=== PATIENT | male | born 1975 | race Caucasian/White ===

== ENCOUNTER 2024-03-25 13:33 | Emergency (ER) | payer OTHER, SELFPAY ==
--- NOTE | ~2024-03-25 | XR_ITS ---
XR chest 1V portable Ordering provider: Sim Palacio DO History: 49 years Male with . chest tightness, restricted airway X week, now worse, asthma . Comparison: None. FINDINGS: MEDIASTINUM: The cardiac silhouette is not enlarged. LUNGS: No infiltrates, effusions or pneumothorax. OTHER: No free air under the diaphragm. IMPRESSION: No acute cardiopulmonary pathology. Reviewed, dictated and finalized at location A. ECONOMIST
--- NOTE | 2024-03-25 13:43 | PC.NURSE ---
Covid culture sent to lab
--- NOTE | 2024-03-25 13:55 | ECG_ITS ---
Test Date: 2024-03-25 14:37:08 Measurements Intervals [place] Rate: 92 P: 55 OK: 153 QRS: -61 QRSD: 108 T: 63 QT: 345 QTc: 427 Interpretive Statements SINUS RHYTHM PATTERN CONSISTENT WITH PULMONARY DISEASE LEFT ANTERIOR FASCICULAR BLOCK [QRS AXIS <= -45, QR IN I, RS IN II] No previous ECG available for comparison Electronically Signed On 03-26-2024 15:06:43 [employer] KEEPER by Angie Goins M.D.
--- NOTE | 2024-03-25 13:57 | ED_ITS ---
HPI - General Adult General Chief complaint: Upper Respiratory Infection Stated complaint: SOB Time Seen by Provider: 03/25/24 13:36 History of Present Illness HPI narrative: Ronnie is a 49M with a PMH of asthma a that presented to the ED with some chest pain and dyspnea. He had URI symptoms for 10 days that were resolving but a few days ago he started having some chest discomfort, dyspnea, cough and lightheaded. The chest pain is better with activity and cold air. No nausea/vomiting. He has taken his Airsupra at home with some modest effect. Related Data Allergies Allergy/AdvReac Type Severity Reaction Status Date / Time amoxicillin (From Amoxil) Allergy Severe Rash Verified 03/25/24 14:20 Review of Systems 2 Review of Systems: All systems reviewed & are unremarkable except as noted in HPI and below Exam 2 Const: General: cooperative, healthy appearing, comfortable, no acute distress, well developed, alert, awake and Physically active O rientation/consciousness: oriented to person, oriented to place and oriented to time HENMT: Head: normal to inspection, normocephalic and atraumatic Ears: h earing grossly normal bilaterally and external ears normal Face/Nose/Sinus: N ormal external nose present Eyes: General: appearance normal, both eyes and all related structures P eriorbital: periorbital findings normal Sclera: sclerae normal Pupils: E qual, round and reactive pupils present Neck: Neck: normal visual inspection Chest: Chest palpation & inspection: normal inspection of the chest Resp: Effort & Inspection: normal respiratory effort, able to speak in complete sentences and no respiratory distress Other: scant wheezing in all lung dickinson Cardio: Jugular venous distension: no JVD Rate: regular rate Rhythm: r egular rhythm GI: Inspection: normal to inspection GI Palp: Yes Soft to palpation A uscultation: normal bowel sounds Skin: General skin exam: normal color and no rashes or lesions noted Neuro: General: oriented to person, oriented to place and oriented to time Cranial nerves: Yes Equal, round and reactive pupils present Extrem: General: normal to inspection Course Course Emergency Course: Ordered CXR, labs, EKG, steroids and duoneb. XR chest 1V portable Ordering provider: Sim Palacio DO History: 49 years Male with . chest tightness, restricted airway X week, now worse, asthma . Comparison: None. FINDINGS: MEDIASTINUM: The cardiac silhouette is not enlarged. LUNGS: No infiltrates, effusions or pneumothorax. OTHER: No free air under the diaphragm. IMPRESSION: No acute cardiopulmonary pathology. EKG showed sinus tachycardia with a rate of 92, normal axis, and no ST elevation/depression COVID+, CBC and chemistries largely unremarkable Vital Signs Vital signs: Vital Signs Oxygen Delivery Room Air 03/25/24 14:00 Temperature 98.3 F 03/25/24 15:06 Pulse Rate 97 03/25/24 15:06 Respiratory Rate 18 03/25/24 15:06 Blood Pressure 122/84 03/25/24 15:06 Pulse Oximetry 95 03/25/24 15:06 Oxygen Delivery Room Air 03/25/24 15:06 Medical Decision Making Vital Signs Vital Signs: Vital Signs Oxygen Delivery Room Air 03/25/24 14:00 Temperature 98.3 F 03/25/24 15:06 Pulse Rate 97 03/25/24 15:06 Respiratory Rate 18 03/25/24 15:06 Blood Pressure 122/84 03/25/24 15:06 Pulse Oximetry 95 03/25/24 15:06 Oxygen Delivery Room Air 03/25/24 15:06 Lab Data 03/25/24 14:04 03/25/24 14:04 Labs: Lab Results 03/25/24 03/25/24 Range/Units 13:56 14:04 WBC 8.3 (4.8-10.8) K/mm3 RBC 4.86 (4.70-6.10) M/mm3 Hgb 14.3 (14.0-18.0) g/dL Hct 42.5 (40.0-54.0) % MCV 87.4 (78.0-102.0) fL MCH 29.4 (27.0-31.0) pg MCHC 33.6 (32-36) g/dL RDW 11.8 (11.6-14.4) % Plt Count 341 (150-420) K/mm3 MPV 8.9 (8.7-11.0) fl Immature Gran % (Auto) 0.5 H (0.0-0.0) % Neut % (Auto) 73.2 H (50.0-70.0) % Lymph % (Auto) 10.8 L (18.0-42.0) % [place] % (Auto) 13.5 H (2.0-11.0) % Eos % (Auto) 1.4 (1.0-6.0) % Baso % (Auto) 0.6 (0.0-1.0) % Lymph # (Auto) 0.90 L (1.10-4.50) K/mm3 [place] # (Auto) 1.12 H (0.10-0.90) K/mm3 Eos # (Auto) 0.12 (0.02-0.50) K/mm3 Baso # (Auto) 0.05 (0.00-0.10) K/mm3 Abs Immat Gran (auto) 0.04 H (0.00-0.00) K/mm3 Absolute Neuts (auto) 6.07 (1.70-7.20) K/mm3 Absolute Nucleated RBC 0.00 (0.00-0.00) K/mm3 Nucleated RBC % 0.0 (0-0.0) % Sodium 141 (136-145) mmol/L Potassium 4.2 (3.5-5.1) mmol/L Chloride 100 (98-108) mmol/L Carbon Dioxide 30 (21-32) mmol/L Anion Gap 11 (4-12) mmol/L BUN 13 (7-18) mg/dL Creatinine 1.01 (0.70-1.30) mg/dL Estim Creat Clear Calc Not Reportable Estimated GFR > 60 (59 - ) Glucose 83 (70-99) mg/dL Calculated Osmolality 291 (285-295) mOsm/kg Calcium 9.4 (8.5-10.1) mg/dL Total Bilirubin 0.4 (0.00-1.00) mg/dL AST 17 (15-37) U/L ALT 59 (16-63) U/L Alkaline Phosphatase 114 (46-116) U/L Troponin I < 4.0 (0.00-60.4) ng/L NT-Pro-B Natriuret Pep 106 (0-125) pg/mL Total Protein 7.7 (6.4-8.2) g/dL Albumin 3.7 (3.4-5.0) g/dL Influenza A (RT-PCR) Negative (Negative) Influenza B (RT-PCR) Negative (Negative) RSV (RT-PCR) Negative (Negative) SARS-CoV-2 RNA (RT-PCR) Positive A (Negative) Discharge Plan Discharge Clinical Impression: COVID-19, Asthma exacerbation Patient Disposition: Home, Self-Care Condition: Stable Instructions: Bronchospasm (ED) Patient Language: Moroccan Prescriptions: New prednisone 50 mg tablet 50 mg PO DAILY Qty: 5 0RF Paxlovid 300 mg (150 mg x 2)-100 mg tablets,dose pack See Rx Instructions .ROUTE .COMPLEX Qty: 30 0RF Rx Instructions: take TWO 150 mg tablets of nirmatrelvir with ONE 100 mg tablet of ritonavir twice daily for 5 days Follow-up/Referrals: UNKNOWN,DOCTOR [Primary Care Provider] -
[2024-03-25 14:09] LABS: Basophils Absolute Auto 0.05 K/mm3 (0.00-0.10); Basophils Percent Auto 0.6 % (0.0-1.0); Eosinophils Absolute Auto 0.12 K/mm3 (0.02-0.50); Eosinophils Percent Auto 1.4 % (1.0-6.0); Hematocrit 42.5 % (40.0-54.0); Hemoglobin 14.3 g/dL (14.0-18.0); Immature Granulocyte Absolute 0.04 K/mm3 (0.00-0.00); Immature Granulocyte Percent A 0.5 % (0.0-0.0); Lymphocytes Percent Auto 10.8 % (18.0-42.0); Mean Corpuscular HGB Conc 33.6 g/dL (32-36); Mean Corpuscular Hemoglobin 29.4 pg (27.0-31.0); Mean Corpuscular Volume 87.4 fL (78.0-102.0); Mean Platelet Volume 8.9 fl (8.7-11.0); Monocytes Absolute Auto 1.12 K/mm3 (0.10-0.90); Monocytes Percent Auto 13.5 % (2.0-11.0); Neutrophils Absolute Auto 6.07 K/mm3 (1.70-7.20); Neutrophils Percent Auto 73.2 % (50.0-70.0); Platelet Count Result 341 K/mm3 (150-420); Red Blood Count 4.86 M/mm3 (4.70-6.10); Red Cell Distribution Width 11.8 % (11.6-14.4); White Blood Count 8.3 K/mm3 (4.8-10.8)
[2024-03-25] MEDS: IPRATROPIUM 0.5 MG/ALBUTEROL SULFATE 2.5 MG AMPUL.NEB 3 ML INHALATION (14:24)
[2024-03-25 14:25] VITALS: PULSE 88; RESP 20; O2SAT 98
[2024-03-25 14:27] LABS: SARS-CoV-2 RNA PCR Positive (Negative)
[2024-03-25] MEDS: methylPREDNISolone SOD SUCC 125 MG VIAL IV PUSH (14:28)
[2024-03-25 14:30] LABS: Alanine Aminotransferase 59 U/L (16-63); Albumin Level 3.7 g/dL (3.4-5.0); Alkaline Phosphatase 114 U/L (46-116); Anion Gap 11 mmol/L (4-12); Aspartate Amino Transferase 17 U/L (15-37); Bilirubin,Total 0.4 mg/dL (0.00-1.00); Blood Urea Nitrogen 13 mg/dL (7-18); Calcium 9.4 mg/dL (8.5-10.1); Carbon Dioxide 30 mmol/L (21-32); Chloride 100 mmol/L (98-108); Estimated Glomerular Filt Rate > 60; Glucose 83 mg/dL (70-99); NT Pro B Type Natriuretic Pept 106 pg/mL (0-125); Osmolality Calculated 291 mOsm/kg (285-295); Potassium 4.2 mmol/L (3.5-5.1); Sodium 141 mmol/L (136-145); Total Protein 7.7 g/dL (6.4-8.2)
[2024-03-25 14:30] LABS: Influenza A QL RT-PCR Negative (Negative); Influenza B QL RT-PCR Negative (Negative); RSV RNA, RT-PCR Negative (Negative)
[2024-03-25 14:32] LABS: Troponin I < 4.0 ng/L (0.00-60.4)
[2024-03-25 14:35] VITALS: PULSE 92; RESP 20; O2SAT 100
--- NOTE | 2024-03-25 15:00 | PC.NURSE ---
PT IS SITTING ON STRETCHER TALKING WITH AT THIS TIME. PT IS AWAITING ERP DECISION AT THIS TIME. NAD NOTED. WILL CONTINUE TO MONITOR.
[2024-03-25 15:06] VITALS: BP 122/84; PULSE 97; RESP 18; TEMP 36.8; O2SAT 95
== END 2024-03-25 15:30 | disposition home or self-care (01) ==
PROVIDERS: Emergency Provider Family Medicine
DX: U07.1 COVID-19 (principal); J45.901 Unspecified asthma with (acute) exacerbation
CPT/HCPCS: 36415; 71045; 80053; 83880; 84484; 85025; 87637; 93005; 94640; 96374; 99284; J2919